=== PATIENT | female | born 1980 | race Caucasian/White ===

== ENCOUNTER 2016-06-23 19:17 | Emergency (ER) | payer SELFPAY ==
[~2016-06-23] VITALS: Ht 172.7 cm; Wt 108.9 kg
[2016-06-23 20:41] VITALS: BP 131/79
== END 2016-06-23 21:18 | disposition home or self-care (01) ==
LOC: ER 19:21
DX: H66.93 Otitis media, unspecified, bilateral (principal); F15.10 Other stimulant abuse, uncomplicated

== ENCOUNTER 2023-12-15 22:41 | Inpatient (IN) | payer MEDICAID ==
[~2023-12-15] VITALS: Ht 172.7 cm; Wt 118.5 kg
[2023-12-15 23:22] LABS: Basophils # (auto) 0.1 10 ^3/uL (0-0.2); Basophils % (auto) 1.1 % (0.0-2.0); Eosinophils # (auto) 0.1 10 ^3/uL (0-0.8); Eosinophils % (auto) 2.4 % (0.0-7.0); Hematocrit 38.2 % (36.0-46.0); Hemoglobin 13.1 g/dL (12.2-16.2); Lymphocytes # (auto) 1.8 10 ^3/uL (0.4-5.4); Lymphocytes % (auto) 29.6 % (10.0-50.0); Mean Corpuscular Hemoglobin 29.7 pg (28.0-32.0); Mean Corpuscular Hgb Conc. 34.2 g/dL (32.0-36.0); Mean Corpuscular Volume 86.6 fL (80.0-100.0); Monocytes # (auto) 0.5 10 ^3/uL (0-1.3); Monocytes % (auto) 7.5 % (0.0-12.0); Neutrophils # (auto) 3.6 10 ^3/uL (1.6-8.6); Neutrophils % (auto) 59.4 % (37.0-80.0); Platelet Count (auto) 263 10^3/uL (140-450); Red Blood Cells 4.42 10^6/uL (4.0-5.20); Red Cell Distribution Width 15.4 % (11.8-14.3); White Blood Cell 6.1 10^3/uL (4.4-10.8)
[2023-12-15] MEDS: ALBUTEROL SULF 2.5 MG/0.5ML(0.5%) NEB SOLN NEB ONE (23:23)
[2023-12-15] MEDS: IPRATROPIUM BROM 0.5 MG/2.5ML INH SOL NEB ONE (23:23)
[2023-12-15 23:31] VITALS: RESP 20
[2023-12-15 23:41] LABS: Chloride 108 mmol/L (98-107); Potassium 3.9 mmol/L (3.5-5.1); Sodium 138 mmol/L (136-145)
[2023-12-15 23:42] LABS: Anion Gap 3 (5-15); Carbon Dioxide 27 mmol/L (20-30)
[2023-12-15 23:43] LABS: Calcium 9.1 mg/dL (8.7-10.4)
[2023-12-15 23:47] LABS: Glucose 102 mg/dL (74-106)
[2023-12-15 23:48] LABS: Blood Urea Nitrogen 10 mg/dL (9-23)
[2023-12-16] VITALS (12 sets, daily range): BP systolic 117–126; BP diastolic 52–79; PULSE 75–107; RESP 13–21; TEMP 97.8; O2SAT 91–98
[2023-12-16 00:53] LABS: Urine Bacteria FEW /hpf (None Seen); Urine Blood 3+ /uL (Negative); Urine Clarity Turbid (Clear); Urine Protein, UAD Negative (Negative); Urine Specific Gravity 1.014 (1.001-1.035); Urine Urobilinogen Normal (Negative); Urine WBC 14 /hpf (0 - 5)
[2023-12-16 00:54] LABS: Urine Color STRAW (Yellow)
[2023-12-16] MEDS: FUROSEMIDE 40 MG/4 ML VIAL IV ONE (00:56)
[2023-12-16] MEDS: methylPREDNISolone SOD SUCC 125 MG/2 ML VL IV ONE (01:46)
[2023-12-16] MEDS: FUROSEMIDE 20 MG/2 ML VIAL IV ONE (02:45)
[2023-12-16] MEDS ORDERED: MORPHINE SULFATE INJ 2 MG/ml SYRG IV PRN (10:00)
[2023-12-16] MEDS ORDERED: ONDANSETRON HCL 4 MG/2 ML VIAL IV PRN (10:00)
[2023-12-16] MEDS ORDERED: IPRATROPIUM BROM 0.5 MG/2.5ML INH SOL NEB PRN (10:00)
[2023-12-16] MEDS ORDERED: ACETAMINOPHEN 325 MG TAB PO PRN (10:00)
[2023-12-16] MEDS ORDERED: ALBUTEROL SULF 2.5 MG/0.5ML(0.5%) NEB SOLN NEB PRN (10:00)
[2023-12-16] MEDS ORDERED: HYDROcodone-ACET 5/325MG TAB PO PRN (10:00)
[2023-12-16 10:12] LABS: Amphetamine Screen, Urine Pos (NEGATIVE); Barbiturate Scree,Urine Neg (NEGATIVE); Benzodiazephine Screen, Urine Neg (NEGATIVE); Cannabinoid Screen, Urine Neg (NEGATIVE); Cocaine Screen, Urine Neg (NEGATIVE); Opiate Scree,Urine Neg (NEGATIVE); Phencyclidine Screen, Urine Neg (NEGATIVE)
[2023-12-16 10:38] LABS: Magnesium 1.8 mg/dL (1.6-2.6)
[2023-12-16] MEDS: IOHEXOL 350 MG/ML 100ML IJ ONE (11:24)
[2023-12-16] MEDS: FUROSEMIDE 20 MG/2 ML VIAL IV SCH (11:29)
[2023-12-16] MEDS: ENOXAPARIN SOD 40 MG/0.4 ML SYRINGE SC SCH (11:30)
[2023-12-16] MEDS: NICOTINE 14 MG/24HR TOPICAL PATCH TD SCH (11:31)
[2023-12-16] MEDS: ALBUTEROL SULF 2.5 MG/0.5ML(0.5%) NEB SOLN NEB SCH (11:33)
[2023-12-16] MEDS: IPRATROPIUM BROM 0.5 MG/2.5ML INH SOL NEB SCH (11:33)
[2023-12-16] MEDS: LEVOTHYROXINE SODIUM 100 MCG TAB PO ONE (13:01)
[2023-12-16] MEDS: ATORVASTATIN 20 MG TAB PO SCH (22:39)
[2023-12-16] MEDS ORDERED: IBUP-1453 PO (22:55)
[2023-12-16] MEDS ORDERED: IBUP100S11 GT (22:55)
[2023-12-17] VITALS (16 sets, daily range): BP systolic 94–136; BP diastolic 47–84; PULSE 60–103; RESP 14–20; TEMP 98–98.9; O2SAT 91–98
[2023-12-17] MEDS: LEVOTHYROXINE SODIUM 100 MCG TAB PO SCH (05:54)
[2023-12-17 06:18] LABS: Alanine Aminotransferase 12 U/L (7-40); Albumin 3.9 g/dL (3.2-4.8); Alkaline Phosphatase 71 U/L (46-116); Anion Gap 5 (5-15); Aspartate Aminotransferase 11 U/L (13-40); BUN/Creatinine Ratio 10.5 (10.0-20.0); Blood Urea Nitrogen 9 mg/dL (9-23); Calcium 8.8 mg/dL (8.7-10.4); Carbon Dioxide 26 mmol/L (20-30); Chloride 107 mmol/L (98-107); Glucose 106 mg/dL (74-106); Potassium 3.6 mmol/L (3.5-5.1); Sodium 138 mmol/L (136-145)
[2023-12-17 06:19] LABS: Bilirubin, Total < 0.2 mg/dL (0.2-1.0); Total Protein 7.7 g/dL (5.7-8.2)
[2023-12-17 06:21] LABS: Basophils # (auto) 0 10 ^3/uL (0-0.2); Basophils % (auto) 0.3 % (0.0-2.0); Eosinophils # (auto) 0 10 ^3/uL (0-0.8); Eosinophils % (auto) 0.1 % (0.0-7.0); Hematocrit 40.7 % (36.0-46.0); Hemoglobin 13.7 g/dL (12.2-16.2); Lymphocytes # (auto) 2.7 10 ^3/uL (0.4-5.4); Lymphocytes % (auto) 19.7 % (10.0-50.0); Mean Corpuscular Hemoglobin 29.7 pg (28.0-32.0); Mean Corpuscular Hgb Conc. 33.7 g/dL (32.0-36.0); Monocytes % (auto) 6.9 % (0.0-12.0); Neutrophils # (auto) 10.1 10 ^3/uL (1.6-8.6); Nucleated Red Blood Cells % 0.2 %; Platelet Count (auto) 299 10^3/uL (140-450); Red Blood Cells 4.62 10^6/uL (4.0-5.20); Red Cell Distribution Width 15.5 % (11.8-14.3); White Blood Cell 13.9 10^3/uL (4.4-10.8)
[2023-12-17] MEDS: methylPREDNISolone SOD SUCC 40 MG/ML VL IV SCH (21:40)
[2023-12-18] VITALS (10 sets, daily range): BP systolic 94–123; BP diastolic 60–90; PULSE 71–91; RESP 16–22; TEMP 97.6–98.5; O2SAT 91–99
[2023-12-18] MEDS: EMPAGLIFLOZIN 10 MG TAB PO SCH (09:26)
[2023-12-18] MEDS ORDERED: PRE5T PO (13:58)
[2023-12-18] MEDS ORDERED: EMPA1TAB PO (13:58)
[2023-12-18] MEDS ORDERED: ALBUAER3 IN (13:58)
[2023-12-18] MEDS ORDERED: FLUT1AER3 IN (13:58)
[2023-12-18] MEDS ORDERED: LEVO100T8 PO (13:58)
[2023-12-18] MEDS ORDERED: ATOR20TA50 PO (13:58)
[2023-12-18] MEDS ORDERED: ACET-1882 PO (13:58)
[2023-12-18] MEDS ORDERED: NICO14DI9 TD (13:58)
[2023-12-18] MEDS ORDERED: FLUT1INH6 IN (16:27)
== END 2023-12-18 16:05 | disposition home or self-care (01) | DRG 133 ==
LOC: ER 22:41 → TELE 12-16 09:53 → TELE-CENTR 12-16 21:55
PROVIDERS: ADMIT Internal Medicine Pulmonary Disease; ATTEND Emergency Medicine
DX: J96.20 Acute and chronic respiratory failure, unspecified whether with hypoxia or hypercapnia (principal); I50.33 Acute on chronic diastolic (congestive) heart failure; J44.1 Chronic obstructive pulmonary disease with (acute) exacerbation; J45.901 Unspecified asthma with (acute) exacerbation; I13.0 Hypertensive heart and chronic kidney disease with heart failure and stage 1 through stage 4 chronic kidney disease, or unspecified chronic kidney disease; E66.01 Morbid (severe) obesity due to excess calories; E78.5 Hyperlipidemia, unspecified; F17.210 Nicotine dependence, cigarettes, uncomplicated; G47.33 Obstructive sleep apnea (adult) (pediatric); F15.10 Other stimulant abuse, uncomplicated; N18.9 Chronic kidney disease, unspecified; F12.10 Cannabis abuse, uncomplicated; Z68.41 Body mass index [BMI] 40.0-44.9, adult
CPT/HCPCS: 36415; 71045; 71275; 76536; 80048; 80053; 80061; 80307; 81001; 81025; 83036; 83735; 83880; 84436; 84443; 84480; 85025; 85379; 93005; 93306; 93970; 94640; 96374; 96375; 99291; G0378